=== PATIENT | female | born 1960 | race Two or more races ===

== ENCOUNTER → 2017-02-19 | Outpatient (CLI) | payer OTHER ==
[~2017-02-19] MED LIST: NO MEDS
== END | disposition home or self-care (01) ==
LOC: RADPV 09:07
PROVIDERS: ATTEND Internal Medicine Nephrology
DX: Z01.89 Encounter for other specified special examinations (principal); R76.12 Nonspecific reaction to cell mediated immunity measurement of gamma interferon antigen response without active tuberculosis; I70.0 Atherosclerosis of aorta; M47.819 Spondylosis without myelopathy or radiculopathy, site unspecified
CPT/HCPCS: 71020